=== PATIENT | male | born 1955 | race Caucasian/White ===

== ENCOUNTER → 2018-05-03 14:55 | Outpatient (CLI) | payer MEDICARE, SELFPAY ==
[2018-05-03 15:56] LABS: Add Manual Diff / Slide Review NO; Basophils Percent Auto 0.9 % (0-2); Eosinophils Percent Auto 6.1 % (2-4); Hematocrit 44.6 % (41-53); Hemoglobin 15.1 g/dL (13.5-17.5); Lymphocytes Percent Auto 24.1 % (25-40); Mean Corpuscular HGB Conc 33.8 % (30-36); Mean Corpuscular Hemoglobin 31.4 PG (26-34); Mean Corpuscular Volume 92.8 fL (80-100); Monocytes Percent Auto 5.3 % (3-14); Neutrophils Absolute Auto 3700 /uL (3000-5900); Neutrophils Percent Auto 63.6 % (50-75); Platelet Count 148 X10^3/uL (150-400); Red Cell Distribution Width 13.1 % (11.6-14.8); White Blood Cell Count 5.9 X10^3/uL (4.5-11.0)
[2018-05-03 16:18] LABS: Alanine Aminotransferase 39 IU/L (21-72); Albumin 4.3 g/dL (3.5-5.0); Albumin Globulin Ratio 1.7 (1.0-2.8); Alkaline Phosphatase 66 U/L (38-126); Aspartate Aminotransferase 21 IU/L (17-59); BUN Creatinine Ratio 24.2 (6-22); Bilirubin Total 0.5 mg/dL (0.2-1.3); Blood Urea Nitrogen 29 mg/dL (9-20); Calcium 9.6 mg/dL (8.4-10.2); Carbon Dioxide 23 mmol/L (22-32); Chloride 106 mmol/L (98-107); Cholesterol 200 mg/dL (140-199); Estimated Glomerular Filt Rate > 60.0 mL/min (>60); Globulin 2.5 g/dL (1.7-4.1); Glucose 87 mg/dL (80-110); HDL Cholesterol 61 mg/dL (40-60); HEMOLYSIS < 15 (0-50); LDL Cholesterol Calculated 130 mg/dL (<100); Potassium 4.8 mmol/L (3.4-5.1); Sodium 142 mmol/L (137-145); Total Protein 6.8 g/dL (6.3-8.2); Triglycerides 45 mg/dL (35-150)
[2018-05-03 16:48] LABS: Thyroid Stimulating Hormone 8.06 uIU/mL (0.47-4.68)
[2018-05-03 16:49] LABS: Prostate Specific Antigen Scrn 3.73 ng/mL (0.1-4.0)
== END ==
PROVIDERS: Family Provider Family Medicine; PCP Family Medicine; Visit Provider Family Medicine
DX: Z00.00 Encounter for general adult medical examination without abnormal findings (principal); Z12.5 Encounter for screening for malignant neoplasm of prostate; R00.0 Tachycardia, unspecified; R74.0 Nonspecific elevation of levels of transaminase and lactic acid dehydrogenase [LDH]; E03.9 Hypothyroidism, unspecified; G61.9 Inflammatory polyneuropathy, unspecified; N40.0 Benign prostatic hyperplasia without lower urinary tract symptoms; R97.20 Elevated prostate specific antigen [PSA]; I10 Essential (primary) hypertension
CPT/HCPCS: 36415; 80053; 80061; 84443; 85025; G0103

== ENCOUNTER → 2018-05-15 10:25 | Outpatient (CLI) | payer MEDICARE, SELFPAY ==
--- NOTE | 2018-05-15 | DI.RAD.S_ITS ---
PROCEDURE: XR HIP W PEL IF DONE RT 2V INDICATIONS: RT HIP PAIN TECHNIQUE: AP pelvis with lateral view(s) of the right hip(s). COMPARISON: None. FINDINGS: Bones: No fractures or dislocations. Pelvic ring appears intact. No suspicious bony lesions. Mild to moderate bilateral hip joint osteophytic changes are seen. No evidence of avascular necrosis. Soft tissues: The visualized bowel gas pattern is normal. No suspicious soft tissue calcifications. IMPRESSION: Mild to moderate bilateral hip joint osteophytes. No pelvic or hip fracture. No evidence of avascular necrosis. Dictated by: Phililp Barragan M.D. on 05/15/2018 at 11:41 Approved by: Phillip Barragan M.D. on 05/15/2018 at 11:42
== END ==
PROVIDERS: Family Provider Family Medicine; PCP Family Medicine; Visit Provider Family Medicine
DX: M25.551 Pain in right hip (principal); M25.752 Osteophyte, left hip; M25.751 Osteophyte, right hip
CPT/HCPCS: 73502

== ENCOUNTER → 2018-08-09 06:59 | Outpatient (CLI) | payer MEDICARE, SELFPAY ==
--- NOTE | 2018-08-09 | DI.MRI.S_ITS ---
PROCEDURE: MR HIP RT WO CON INDICATIONS: RIGHT GROIN PAIN TECHNIQUE: Noncontrast coronal T1 spin echo and STIR through the bony pelvis. Coronal and axial T2 fast spin echo with fat saturation, sagittal T1 spin echo, and oblique axial T2 fast spin echo with fat saturation through the hip. COMPARISON: [facility], CR, XR HIP W PEL IF DONE RT 2V, 05/15/2018, 10:32. FINDINGS: Image quality: Excellent. Bones and joints: Mild bilateral hip degeneration, with subchondral sclerosis and spurring. No intraosseous lesions or fractures. Degenerative marrow signal changes and spurring at the pubis symphysis. No avascular necrosis of the femoral heads. Mild diffuse lower lumbar spondylosis there is Tendons and ligaments: Mild thickening of the gluteus minimus tendon with adjacent soft tissue edema in keeping with low-grade tendinopathy The nearby proximal iliotibial band also appears intact. The iliopsoas tendon appears intact, without adjacent bursal fluid collections or evidence for impingement syndrome. Minimal thickening of the origin of the hamstring, which is technically indeterminate The straight and reflected heads of the rectus femoris muscle origin appear intact, as well as the conjoint tendon. The ligamentum teres appears intact where visualized. Labrum and cartilage: Irregularity and intrasubstance signal change which appears to traverse the full thickness of the base of the anterosuperior labrum, probably reflecting tear, which may be chronic/age-appropriate.There is mild adjacent subchondral loss. The alpha angle of the femur is within normal limits at less than 55 degrees. Soft tissues: Visualized muscles demonstrate normal bulk and internal signal. Quadratus femoris muscle demonstrates no internal edema to suggest ischiofemoral impingement. The proximal sciatic neurovascular bundle appears normal adjacent to the hamstring tendons. No free pelvic fluid. Bladder wall thickness is normal. Genitourinary structures and bowel loops appear normal where visualized. IMPRESSION: Poorly defined anterosuperior labral tear which could be chronic/degenerative. Mild right hip abductor insertional tendinopathy primarily involving the gluteus minimus tendon. Age indeterminate minimal hamstring origin tendinopathy. Mild bilateral hip joint degeneration. Dictated by: Luis Pope M.D. on 08/09/2018 at 10:04 Approved by: Luis Pope M.D. on 08/09/2018 at 10:13
== END ==
PROVIDERS: Family Provider Family Medicine; PCP Family Medicine; Visit Provider Family Medicine
DX: R10.9 Unspecified abdominal pain (principal); M16.0 Bilateral primary osteoarthritis of hip; S73.191A Other sprain of right hip, initial encounter; M67.853 Other specified disorders of tendon, right hip
CPT/HCPCS: 73721

== ENCOUNTER → 2018-10-05 13:00 | Outpatient (CLI) | payer MEDICARE, SELFPAY ==
[2018-10-05 15:07] LABS: TSH w/ Reflex to FT4 5.63 uIU/mL (0.47-4.68)
[2018-10-05 15:44] LABS: Free T4, Direct Thyroxine 1.19 ng/dL (0.78-2.19)
== END ==
PROVIDERS: PCP Family Medicine; Visit Provider Family Medicine
DX: E03.9 Hypothyroidism, unspecified (principal)
CPT/HCPCS: 36415; 84439; 84443

== ENCOUNTER → 2018-11-27 10:38 | Outpatient (CLI) | payer MEDICARE, SELFPAY ==
--- NOTE | 2018-11-27 10:42 | DI.CT.S_ITS ---
PROCEDURE: CT KIDNEY URETER BLADDER (KUB) INDICATIONS: Calculus of kidney. Groin pain TECHNIQUE: Noncontrast 5 mm thick sections acquired from the diaphragms to the symphysis. 5 mm thick coronal and sagittal reformats were then performed. For radiation dose reduction, the following was used: automated exposure control, adjustment of mA and/or kV according to patient size. COMPARISON: [facility], CT, IVP (ABD & PEL WWO CONTRAST), 07/12/2016, 10:20. [facility], CT, KIDNEY/ URETER/BLADDER, 09/19/2006, 12:59. FINDINGS: Image quality: Excellent. Lung bases: Lung bases are clear. Heart size is normal. Urinary system: No right-sided urolithiasis is identified. 2 mm left renal calculus on image 32 series 2 in the interpolar region. There is also 1 mm calculus present in the left kidney on image 29 series 2. No hydronephrosis. No perinephric stranding identified. The ureters are nondilated. The bladder is grossly unremarkable although partially decompressed. No bladder calculi.. Other solid organs: Liver is normal in size. Gallbladder negative. Pancreas is normal in contours. Spleen is normal in size. No adrenal nodules. Peritoneum and bowel: There is possible distal gastric wall thickening raising the possibility of gastritis although technically nonspecific and the stomach is decompressed which limits evaluation. No free fluid or air. Colonic diverticulosis is seen without evidence of acute complication. The appendix is within normal limits. Mild/moderate stool Nodes and vessels: No retroperitoneal or mesenteric adenopathy by size criteria. Aorta and inferior vena cava are normal in caliber. Abdominal wall: No ventral hernias. Pelvis: No free pelvic fluid. No inguinal hernias or adenopathy. Bones: No suspicious bony lesions. No vertebral body compression fractures. IMPRESSION: Sub-5 mm left nephrolithiasis. No evidence of urinary obstruction. Elsewhere, no acute process. Low diverticulosis. Dictated by: Luis Pope M.D. on 11/27/2018 at 16:34 Approved by: Luis Pope M.D. on 11/27/2018 at 16:41
== END ==
PROVIDERS: PCP Family Medicine; Visit Provider Specialist
DX: N20.0 Calculus of kidney (principal); R10.30 Lower abdominal pain, unspecified; K57.90 Diverticulosis of intestine, part unspecified, without perforation or abscess without bleeding
CPT/HCPCS: 74176

== ENCOUNTER → 2018-12-04 09:19 | Outpatient (CLI) | payer MEDICARE, SELFPAY ==
[2018-12-04 12:30] LABS: Prostate Specific Antigen Scrn 2.71 ng/mL (0.1-4.0)
== END ==
PROVIDERS: PCP Family Medicine; Visit Provider Specialist
DX: N40.1 Benign prostatic hyperplasia with lower urinary tract symptoms (principal)
CPT/HCPCS: 36415; 84153; G0103

== ENCOUNTER → 2018-12-12 08:58 | Outpatient (CLI) | payer MEDICARE, SELFPAY ==
--- NOTE | 2018-12-12 | DI.US.S_ITS ---
PROCEDURE: US SCROTUM INDICATIONS: SCROTAL PAIN/HERNIA TECHNIQUE: Real-time scanning was performed of the scrotum and testicles, with image documentation. Color and pulse Doppler interrogation was performed of both testicles. COMPARISON: None. FINDINGS: Right: Testicle is normal in size at 4.4 x 2.3 x 2.7 cm, and homogenous in echotexture. Epididymis is normal in overall size and morphology. No hydrocele or varicoceles. Overlying scrotal skin is normal in thickness. 5 mm focus of calcification at the posterior aspect of the right testis. Left: Testicle is normal in size at 4.0 x 1.9 x 2.3 cm, and homogeneous in echotexture. Epididymis is normal in overall size and morphology. No hydrocele or varicoceles. Overlying scrotal skin is normal in thickness. Doppler: Color and pulse Doppler demonstrate normal and symmetric arterial flow in both testicles. IMPRESSION: 1. No acute process. 2. Calcific focus at the posterior aspect of the right testicle, possibly related to prior hemorrhage, infection, or inflammation. Dictated by: Miller Mart M.D. on 12/12/2018 at 16:49 Approved by: Miller Mart M.D. on 12/12/2018 at 16:50
--- NOTE | 2018-12-12 | DI.US.S_ITS ---
PROCEDURE: US ABDOMEN LIMITED INDICATIONS: Suspect right inguinal hernia. TECHNIQUE: Real-time focused scanning was performed of the abdomen, with image documentation. COMPARISON: None. FINDINGS: Ultrasound was performed in the area of interest. No inguinal hernia is identified bilaterally. Mildly enlarged right inguinal lymph nodes are noted bilaterally measuring up to 1.3 cm on the right and improvement on the left. The lymph nodes demonstrate normal morphology with fatty sofia. IMPRESSION: 1. No inguinal hernias identified on ultrasound. 2. Bilateral borderline enlarged inguinal lymph nodes, most likely reactive. Recommend clinical correlation and followup. Dictated by: Jaci Kim M.D. on 12/12/2018 at 13:32 Approved by: Jaci Kim M.D. on 12/12/2018 at 13:35
== END ==
PROVIDERS: PCP Student in an Organized Health Care Education/Training Program; Visit Provider Specialist
DX: N50.82 Scrotal pain (principal); R59.0 Localized enlarged lymph nodes
CPT/HCPCS: 76705; 76870

== ENCOUNTER → 2021-05-15 08:42 | Outpatient (CLI) | payer MEDICARE, SELFPAY ==
[2021-05-15 10:42] LABS: Add Manual Diff / Slide Review NO; Basophils Absolute Auto 100 /uL (0-100); Basophils Percent Auto 0.9 % (0-2); Eosinophils Absolute Auto 300 /uL (0-450); Hematocrit 45.2 % (41-53); Hemoglobin 15.6 g/dL (13.5-17.5); Lymphocytes Absolute Auto 1200 /uL (1100-4500); Lymphocytes Percent Auto 21.8 % (25-40); Mean Corpuscular HGB Conc 34.4 % (30-36); Mean Corpuscular Hemoglobin 30.8 PG (26-34); Mean Corpuscular Volume 89.4 fL (80-100); Monocytes Absolute Auto 400 /uL (0-900); Monocytes Percent Auto 6.6 % (3-14); Neutrophils Absolute Auto 3600 /uL (1500-7000); Neutrophils Percent Auto 64.7 % (50-75); Platelet Count 169 X10^3/uL (150-400); Red Blood Cell Count 5.06 X10^6/uL (4.5-5.9); Red Cell Distribution Width 12.9 % (11.6-14.8); White Blood Cell Count 5.6 X10^3/uL (4.5-11.0)
[2021-05-15 11:45] LABS: Alanine Aminotransferase 24 IU/L (<50); Albumin 3.9 g/dL (3.5-5.0); Albumin Globulin Ratio 1.4 (1.0-2.8); Alkaline Phosphatase 77 U/L (38-126); Aspartate Aminotransferase 23 IU/L (17-59); Bilirubin Total 0.4 mg/dL (0.2-1.3); Blood Urea Nitrogen 14 mg/dL (9-20); Calcium 9.5 mg/dL (8.4-10.2); Carbon Dioxide 29 mmol/L (22-32); Chloride 105 mmol/L (98-107); Cholesterol 179 mg/dL (140-199); Estimated Glomerular Filt Rate > 60.0 mL/min (>60); Globulin 2.8 g/dL (1.7-4.1); Glucose 96 mg/dL (80-110); HDL Cholesterol 56 mg/dL (40-60); HEMOLYSIS < 15 (0-50); LDL Cholesterol Calculated 114 mg/dL (<100); Potassium 4.3 mmol/L (3.4-5.1); Sodium 138 mmol/L (137-145); Total Protein 6.7 g/dL (6.3-8.2); Triglycerides 46 mg/dL (35-150)
[2021-05-15 12:41] LABS: Free T4, Direct Thyroxine 0.69 ng/dL (0.78-2.19)
== END ==
PROVIDERS: PCP Student in an Organized Health Care Education/Training Program; Referring Provider Physician Assistant; Visit Provider Physician Assistant
DX: I10 Essential (primary) hypertension (principal); E03.9 Hypothyroidism, unspecified; E78.5 Hyperlipidemia, unspecified; N40.0 Benign prostatic hyperplasia without lower urinary tract symptoms
CPT/HCPCS: 36415; 80053; 80061; 84153; 84439; 84443; 85025

== ENCOUNTER → 2021-06-03 17:26 | Outpatient (CLI) | payer MEDICARE, SELFPAY | PROVIDERS: PCP Student in an Organized Health Care Education/Training Program; Referring Provider Physician Assistant; Visit Provider Physician Assistant | DX: R10.30 Lower abdominal pain, unspecified (principal) ==

== ENCOUNTER → 2021-06-10 06:59 | Outpatient (CLI) | payer MEDICARE, SELFPAY ==
--- NOTE | 2021-06-10 07:02 | DI.MRI.S_ITS ---
PROCEDURE: MR LUMBAR SPINE WO CON INDICATIONS: Radiculopathy, lumbar region TECHNIQUE: Noncontrast sagittal T1 spin echo and T2 fast echo, sagittal STIR, axial T1 and T2 fast spin echo through the lumbar spine. In cases with scoliosis, additional coronal T2 fast spin echo may be performed. COMPARISON: [facility], CR, ABDOMEN 1 VIEW, 09/19/2006, 13:06. FINDINGS: Image quality: Excellent. Alignment and Curvature: 5 lumbar type vertebral bodies are present by plain film. There is mild grade 1 retrolisthesis of T12 on L1, L1 on L2, L2 on L3, L3 on L4, and L5 on S1. Bone Marrow: Marrow is of normal overall signal. No acute vertebral body compression fractures. Moderate reactive signal within the endplates adjacent to the L5-S1 intervertebral disc. Mild reactive signal within the remaining lumbar and lower thoracic endplates. Spinal Cord: Conus medullaris terminates at the upper L2 level. Visualized cord demonstrates normal signal and size. Paraspinous Soft Tissues: No paravertebral masses. T12-L1: Moderate disc height loss and desiccation. Mild diffuse disc bulge. Mild bilateral facet and ligamentum flavum hypertrophy. Mild canal stenosis. No foraminal stenosis. L1-L2: Mild disc height loss. Moderate disc desiccation. Mild diffuse disc bulge. Mild facet and ligamentum flavum hypertrophy. Mild canal stenosis. Mild bilateral foraminal stenosis. L2-L3: Mild disc height loss and desiccation. Mild diffuse disc bulge. Mild facet and ligamentum flavum hypertrophy. Mild epidural lipomatosis. Mild canal stenosis. Mild bilateral foraminal stenosis. L3-L4: Moderate disc height loss and desiccation. Mild diffuse disc bulge. Mild facet and ligamentum flavum hypertrophy. Mild epidural lipomatosis. Mild canal stenosis. Mild to moderate bilateral foraminal stenosis. L4-L5: Mild disc height loss and desiccation. Mild diffuse disc bulge. Mild facet and ligamentum flavum hypertrophy. Mild epidural lipomatosis. Mild canal stenosis. Moderate to severe bilateral foraminal stenosis with mild L4 nerve root compression. L5-S1: Moderate disc height loss and desiccation. Mild diffuse disc bulge/osteophyte. Mild bilateral facet hypertrophy. Mild canal stenosis. Moderate to severe left and moderate right foraminal stenosis. Mild left L5 nerve root compression. IMPRESSION: 1. Multilevel degenerative disc and facet disease, as well as ligamentum flavum hypertrophy and epidural lipomatosis. 2. Mild multilevel canal stenoses. 3. Multilevel foraminal stenoses, worst at L4-L5 and L5-S1 where there is associated intraforaminal nerve root compression. Recommend correlation with clinical symptoms to ascertain relevance of these findings. Dictated by: Miller Mart M.D. on 06/10/2021 at 9:05 Approved by: Miller Mart M.D. on 06/10/2021 at 9:08
== END ==
PROVIDERS: PCP Physician Assistant; Referring Provider Physician Assistant; Visit Provider Physician Assistant
DX: M51.16 Intervertebral disc disorders with radiculopathy, lumbar region (principal); M51.17 Intervertebral disc disorders with radiculopathy, lumbosacral region; M48.061 Spinal stenosis, lumbar region without neurogenic claudication; M48.07 Spinal stenosis, lumbosacral region
CPT/HCPCS: 72148

== ENCOUNTER → 2021-06-11 08:53 | Outpatient (CLI) | payer MEDICARE, SELFPAY ==
--- NOTE | 2021-06-11 | DI.RAD.S_ITS ---
PROCEDURE: FL HIP INJECTION MR/CT RT INDICATIONS: Other sprain of right hip, initial encounter TECHNIQUE: The indications, alternatives, benefits, risks, and complications of the procedure were explained to the patient. Written informed consent was obtained and placed in the chart. The hip was examined fluoroscopically with the legs fixed in slight internal rotation, and a site for needle placement chosen for entry into the hip joint from an anterior approach. Care was taken to locate the common femoral artery and vein beforehand. The skin was prepped and draped in a sterile fashion, and 1% Lidocaine infiltrated from skin down to joint capsule. A spinal needle was inserted into the joint, and a small amount of iodinated contrast media injected to confirm intra-articular placement of the needle tip. This was followed by approximately 10 mL dilute solution of a gadolinium containing MR contrast agent. The needle was removed and a dressing was applied. The patient was given postprocedural instructions and sent to the MR suite for imaging. COMPARISON: [facility], , MR HIP RT W CON, 06/11/2021, 9:38. FINDINGS: A single fluoroscopic spot image demonstrates intra-articular location of injected iodinated contrast. IMPRESSION: Successful fluoroscopically guided administration of dilute Gadolinium solution into the hip joint for MR arthrogram. Dictated by: Miller Mart M.D. on 06/11/2021 at 10:08 Approved by: Miller Mart M.D. on 06/11/2021 at 10:09
--- NOTE | 2021-06-11 | DI.MRI.S_ITS ---
PROCEDURE: MR HIP RT W CON INDICATIONS: Other sprain of right hip, initial encounter TECHNIQUE: After the administration of 10 mL of dilute intra-articular Gadolinium contrast, coronal STIR of the bony pelvis; coronal and oblique axial T1 spin echo with fat saturation, axial T2 fast spin echo with fat saturation, sagittal T1 spin echo with and without fat saturation of the involved hip. COMPARISON: None. FINDINGS: Image quality: Excellent. Bones and joints: Symmetric appearing mild bilateral hip joint osteoarthritic changes are seen. No marrow edema. No intraosseous lesions or fractures. No avascular necrosis of the femoral head. The visualized lower lumbar spine appears normally aligned. The ligamental, neck, and labral plicae appear normal where visualized. Tendons and ligaments: There is tendinosis and low to moderate grade partial-thickness tear involving distal right gluteus medius and minimus tendons at their insertion on greater trochanter, without associated muscle atrophy. The nearby proximal iliotibial band also appears intact. The iliopsoas tendon appears intact, without adjacent bursal fluid collections or evidence for impingement syndrome. The origin of the hamstring tendon is intact at the ischial tuberosity, as well as the associated sacrotuberous ligament. The straight and reflected heads of the rectus femoris muscle origin appear intact, as well as the conjoint tendon. The ligamentum teres appears intact where visualized. Labrum and cartilage: Thinning of articulating cartilages of femoral head is seen. There is subtle fraying of superior right hip labrum with questionable contrast extension best seen on series 4, image 13 suggestive of focal superior labral tear. No paralabral cysts. The alpha angle of the femur is within normal limits at less than 55 degrees. Soft tissues: Visualized muscles demonstrate normal bulk and internal signal. Quadratus femoris muscle demonstrates no internal edema to suggest ischiofemoral impingement. The proximal sciatic neurovascular bundle appears normal adjacent to the hamstring tendons. No free pelvic fluid. Bladder wall thickness is normal. Genitourinary structures and bowel loops appear normal where visualized. IMPRESSION: 1. Mild symmetric appearing bilateral hip joint osteoarthritis. No marrow edema. No fracture or dislocation. No evidence of avascular necrosis of femoral head. 2. Finding is suggestive of subtle focal superior right hip labral tear. 3. Tendinosis and low to moderate grade partial-thickness tear involving distal right gluteus medius and minimus tendons at their insertions on greater trochanter. No other muscle or tendon signal abnormality is seen. Dictated by: Phillip Barragan M.D. on 06/11/2021 at 10:41 Approved by: Phillip Barragan M.D. on 06/11/2021 at 11:27
== END ==
PROVIDERS: PCP Physician Assistant; Referring Provider Physician Assistant; Visit Provider Physician Assistant
DX: R10.30 Lower abdominal pain, unspecified (principal); S73.191A Other sprain of right hip, initial encounter; M16.0 Bilateral primary osteoarthritis of hip; S76.011A Strain of muscle, fascia and tendon of right hip, initial encounter
CPT/HCPCS: 27093; 73722; 77002

== ENCOUNTER → 2021-06-24 13:22 | Outpatient (CLI) | payer MEDICARE, SELFPAY ==
[2021-06-24 15:59] LABS: TSH w/ Reflex to FT4 0.02 uIU/mL (0.47-4.68)
[2021-06-24 16:29] LABS: Free T4, Direct Thyroxine 2.13 ng/dL (0.78-2.19)
== END ==
PROVIDERS: PCP Physician Assistant; Referring Provider Physician Assistant; Visit Provider Physician Assistant
DX: E03.9 Hypothyroidism, unspecified (principal)
CPT/HCPCS: 36415; 84439; 84443

== ENCOUNTER → 2021-07-21 11:37 | Outpatient (CLI) | payer MEDICARE, SELFPAY ==
--- NOTE | 2021-07-21 11:42 | DI.CT.S_ITS ---
PROCEDURE: CT ABDOMEN PELVIS W CON INDICATIONS: Left lower quadrant pain, diverticulitis TECHNIQUE: After the administration of oral and IV contrast, axial sections were acquired from the lung bases to the pubic symphysis. Coronal and sagittal reformats were performed. For radiation dose reduction, the following was used: automated exposure control, adjustment of mA and/or kV according to patient size. COMPARISON: None. FINDINGS: Image quality: Excellent. Lung bases: Lungs are clear. Mild circumferential distal esophageal wall thickening. Heart: No significant findings. ABDOMEN: Liver: No masses Gallbladder: Normal wall thickness. Biliary ducts: Nondilated. Pancreas: Normal. Spleen: Normal size. Adrenal Glands: No nodules. Kidneys and Ureters: Normal enhancement. Nonobstructing three and 4 mm left sided kidney stones. No hydronephrosis or hydroureter. Stomach and Bowel: Moderate inflammatory changes at the distal descending and proximal sigmoid colon, an area of several inflamed diverticula. There is no extraluminal gas or fluid collection. There is fascial thickening but no free fluid in the pelvis. The remainder of the stomach and bowel appears normal. Peritoneum: No abnormal intraperitoneal fluid. No free air. Ventral Wall: No hernia. Abdominal Nodes: No retroperitoneal or mesenteric adenopathy by size criteria. Vessels: Aorta and inferior vena cava are normal in size. PELVIS: Pelvic Organs: Prostate gland is mildly enlarged. Bladder: Unremarkable. Pelvic Nodes: No enlarged lymph nodes. Miscellaneous: No inguinal hernias are seen. Bones: Unremarkable. IMPRESSION: 1. Acute inflammation in the left lower quadrant surrounding of focal area of distal descending and proximal sigmoid colon containing diverticula. While this is most likely acute diverticulitis, given focality, colonoscopy to exclude tumor is recommended after resolution of the acute disease. 2. Nonobstructing left intrarenal stones measuring three and 4 mm. 3. Distal esophageal wall thickening suggesting reflux esophagitis. Correlate clinically. Dictated by: Tosin Wilson M.D. on 07/21/2021 at 14:06 Approved by: Tosin Wilson M.D. on 07/21/2021 at 14:11
[2021-07-21 11:59] LABS: Add Manual Diff / Slide Review NO; Basophils Absolute Auto 0 /uL (0-100); Basophils Percent Auto 0.3 % (0-2); Eosinophils Absolute Auto 100 /uL (0-450); Eosinophils Percent Auto 0.5 % (2-4); Hematocrit 45.3 % (41-53); Hemoglobin 15.1 g/dL (13.5-17.5); Lymphocytes Absolute Auto 800 /uL (1100-4500); Lymphocytes Percent Auto 7.3 % (25-40); Mean Corpuscular HGB Conc 33.4 % (30-36); Mean Corpuscular Hemoglobin 30.2 PG (26-34); Mean Corpuscular Volume 90.3 fL (80-100); Monocytes Absolute Auto 900 /uL (0-900); Monocytes Percent Auto 7.5 % (3-14); Neutrophils Absolute Auto 9700 /uL (1500-7000); Neutrophils Percent Auto 84.4 % (50-75); Platelet Count 202 X10^3/uL (150-400); Red Blood Cell Count 5.02 X10^6/uL (4.5-5.9); Red Cell Distribution Width 12.8 % (11.6-14.8); White Blood Cell Count 11.5 X10^3/uL (4.5-11.0)
[2021-07-21 12:19] LABS: Alanine Aminotransferase 157 IU/L (<50); Albumin 4.3 g/dL (3.5-5.0); Albumin Globulin Ratio 1.2 (1.0-2.8); Alkaline Phosphatase 115 U/L (38-126); Aspartate Aminotransferase 105 IU/L (17-59); BUN Creatinine Ratio 16.8 (6-22); Bilirubin Total 0.8 mg/dL (0.2-1.3); Blood Urea Nitrogen 16 mg/dL (9-20); Calcium 9.5 mg/dL (8.4-10.2); Carbon Dioxide 29 mmol/L (22-32); Chloride 104 mmol/L (98-107); Estimated Glomerular Filt Rate > 60.0 mL/min (>60); Globulin 3.5 g/dL (1.7-4.1); Glucose 110 mg/dL (80-110); HEMOLYSIS < 15 (0-50); Potassium 4.6 mmol/L (3.4-5.1); Sodium 136 mmol/L (137-145); Total Protein 7.8 g/dL (6.3-8.2)
== END ==
PROVIDERS: PCP Physician Assistant; Referring Provider Physician Assistant; Visit Provider Physician Assistant
DX: R10.32 Left lower quadrant pain (principal); N20.0 Calculus of kidney
CPT/HCPCS: 36415; 74177; 80053; 85025; Q9967

== ENCOUNTER → 2021-07-23 09:24 | Outpatient (CLI) | payer MEDICARE, SELFPAY ==
[2021-07-23 10:41] LABS: Alanine Aminotransferase 146 IU/L (<50); Albumin 4.2 g/dL (3.5-5.0); Albumin Globulin Ratio 1.1 (1.0-2.8); Alkaline Phosphatase 140 U/L (38-126); Aspartate Aminotransferase 63 IU/L (17-59); BUN Creatinine Ratio 20.8 (6-22); Bilirubin Total 0.7 mg/dL (0.2-1.3); Blood Urea Nitrogen 20 mg/dL (9-20); Calcium 10.4 mg/dL (8.4-10.2); Carbon Dioxide 34 mmol/L (22-32); Chloride 102 mmol/L (98-107); Estimated Glomerular Filt Rate > 60.0 mL/min (>60); Globulin 3.7 g/dL (1.7-4.1); Glucose 106 mg/dL (80-110); HEMOLYSIS < 15 (0-50); Potassium 5.1 mmol/L (3.4-5.1); Sodium 138 mmol/L (137-145); Total Protein 7.9 g/dL (6.3-8.2)
[2021-07-23 11:07] LABS: TSH w/ Reflex to FT4 < 0.02 uIU/mL (0.47-4.68)
== END ==
PROVIDERS: PCP Physician Assistant; Referring Provider Physician Assistant; Visit Provider Physician Assistant
DX: E03.9 Hypothyroidism, unspecified (principal); R94.5 Abnormal results of liver function studies
CPT/HCPCS: 36415; 80053; 84443

== ENCOUNTER → 2021-07-28 09:27 | Outpatient (CLI) | payer MEDICARE, SELFPAY ==
[2021-07-28 11:49] LABS: Alanine Aminotransferase 56 IU/L (<50); Albumin 3.9 g/dL (3.5-5.0); Albumin Globulin Ratio 1.3 (1.0-2.8); Alkaline Phosphatase 105 U/L (38-126); Aspartate Aminotransferase 28 IU/L (17-59); BUN Creatinine Ratio 22.9 (6-22); Bilirubin Total 0.3 mg/dL (0.2-1.3); Blood Urea Nitrogen 22 mg/dL (9-20); Calcium 9.5 mg/dL (8.4-10.2); Carbon Dioxide 28 mmol/L (22-32); Chloride 106 mmol/L (98-107); Estimated Glomerular Filt Rate > 60.0 mL/min (>60); Glucose 94 mg/dL (80-110); HEMOLYSIS < 15 (0-50); Potassium 5.2 mmol/L (3.4-5.1); Sodium 136 mmol/L (137-145); Total Protein 6.9 g/dL (6.3-8.2)
== END ==
PROVIDERS: PCP Physician Assistant; Referring Provider Physician Assistant; Visit Provider Physician Assistant
DX: R94.5 Abnormal results of liver function studies (principal)
CPT/HCPCS: 36415; 80053

== ENCOUNTER → 2021-12-14 09:36 | Outpatient (CLI) | payer MEDICARE, SELFPAY ==
[2021-12-14 11:16] LABS: Appearance Urine UA CLEAR; Bilirubin Urine UA NEGATIVE (NEGATIVE); Color Urine UA YELLOW; Glucose Urine UA NEGATIVE (Negative); Ketones Urine UA NEGATIVE (NEGATIVE); Leukocyte Esterase Urine UA NEGATIVE (NEGATIVE); Nitrite Urine UA NEGATIVE (Negative); Occult Blood Urine UA NEGATIVE (Negative); Protein Urine UA NEGATIVE (Negative); Specific Gravity Urine UA 1.025 (1.000-1.035); Urobilinogen Urine UA 0.2 E.U./dL (0.2)
[2021-12-14 11:35] LABS: Bacteria Urine None Seen; Culture Indicated Urine Cult Not Indicated; Hyaline Casts Urine 1-5/LPF; RBC Urine 0-1/HPF (0-5/HPF); Squamous Epithelial Cell Urine None Seen (0-5/HPF); WBC Urine 0-1/HPF (0-5/HPF)
[2021-12-14 11:51] LABS: Alanine Aminotransferase 25 IU/L (<50); Albumin 4.1 g/dL (3.5-5.0); Albumin Globulin Ratio 1.4 (1.0-2.8); Alkaline Phosphatase 79 U/L (38-126); Aspartate Aminotransferase 27 IU/L (17-59); BUN Creatinine Ratio 19.6 (6-22); Bilirubin Total 0.3 mg/dL (0.2-1.3); Blood Urea Nitrogen 18 mg/dL (9-20); Calcium 9.4 mg/dL (8.4-10.2); Carbon Dioxide 25 mmol/L (22-32); Chloride 109 mmol/L (98-107); Cholesterol 187 mg/dL (140-199); Estimated Glomerular Filt Rate > 60 mL/min (>60); Globulin 2.9 g/dL (1.7-4.1); Glucose 94 mg/dL (80-110); HDL Cholesterol 47 mg/dL (40-60); HEMOLYSIS < 15 (0-50); LDL Cholesterol Calculated 130 mg/dL (<100); Potassium 4.4 mmol/L (3.4-5.1); Sodium 138 mmol/L (137-145); Triglycerides 48 mg/dL (35-150)
[2021-12-14 12:05] LABS: Vitamin D 25 Hydroxy (D3) 57.7 ng/mL (30.0-100.0)
[2021-12-14 12:24] LABS: Creatinine Urine Random 141.1 mg/dL
[2021-12-14 12:44] LABS: Free T4, Direct Thyroxine 0.94 ng/dL (0.78-2.19)
[2021-12-15 06:01] LABS: PSA Free % 11.1 % (.); PSA, Total 14.4 ng/mL (0.0-4.0)
== END ==
PROVIDERS: PCP Physician Assistant
DX: E03.9 Hypothyroidism, unspecified (principal); I10 Essential (primary) hypertension; R74.8 Abnormal levels of other serum enzymes; N40.0 Benign prostatic hyperplasia without lower urinary tract symptoms; Z13.21 Encounter for screening for nutritional disorder; E78.5 Hyperlipidemia, unspecified
CPT/HCPCS: 36415; 80053; 80061; 81001; 82043; 82306; 82570; 84153; 84154; 84439; 84443

== ENCOUNTER → 2021-12-30 11:18 | Outpatient (CLI) | payer MEDICARE, SELFPAY ==
[2021-12-30 12:33] LABS: COVID19 -Nasal RAPID Negative (Negative)
== END ==
PROVIDERS: PCP Physician Assistant; Visit Provider Surgery
DX: Z20.822 Contact with and (suspected) exposure to COVID-19 (principal); Z01.812 Encounter for preprocedural laboratory examination
CPT/HCPCS: 87635; C9803

== ENCOUNTER 2021-12-31 12:27 | Day surgery (SDC) | payer MEDICARE, SELFPAY ==
[2021-12-31 12:57] VITALS: BMI 29.3
[2021-12-31 13:04] VITALS: BP 115/83; PULSE 70; RESP 18; TEMP 36.2; O2SAT 98
[2021-12-31] MEDS: LACTATED RINGERS 1,000 ML 100 ML IV (13:17)
--- NOTE | 2021-12-31 14:13 | PM.HP.1 ---
History of Present Illness History of Present Illness Date Patient Seen: 12/31/21 Time Patient Seen: 14:13 Chief complaint: SCREENING COLONOSCOPY Narrative: Mustapha is here for a colonoscopy. He believes his last one was about [address] Colon. His dad had colon cancer in his late 60s. His hernia has not been bothering him and he does not feel like needs to have addressed at this time Patient History Medical History (Updated 12/31/21 @ 14:14 by Jesús Houston MD) HTN (hypertension) Hypothyroid Migraine Surgical History H/O knee surgery Family & Social History Family History Father Heart disease Mother Stroke Social History: household members none lives independently Yes Tobacco & Substance use: Smoking Status Never smoker alcohol intake never Substance Use Type does not use Meds Home Medications and Allergies Home Medications Medication Instructions Recorded Confirmed Type atenolol 25 mg tablet 25 mg PO QDAY ##0 05/03/16 12/31/21 History celecoxib 200 mg capsule (Celebrex) 200 mg PO DAILY 07/01/21 12/31/21 History hydrocodone 7.5 mg-acetaminophen 1 tab PO DAILY 07/01/21 12/31/21 History 325 mg tablet levothyroxine 25 mcg capsule 200 mcg PO DAILY 07/01/21 12/31/21 History lisinopril 20 mg tablet 20 mg PO DAILY 07/01/21 12/31/21 History sumatriptan succinate 100 mg 100 mg PO ONCE 07/01/21 12/31/21 History tablet (Imitrex) tamsulosin 0.4 mg capsule 0.4 mg PO DAILY 07/01/21 12/31/21 History dutasteride 0.5 mg DAILY 12/31/21 12/31/21 History zolpidem 10 mg tablet 10 mg 3XD 12/31/21 12/31/21 History Allergies Allergy/AdvReac Type Severity Reaction Status Date / Time No Known Drug Allergies Allergy Verified 12/31/21 12:49 Exam Vital Signs (past 8 hours): - 12/31/21 13:04 Temperature 97.1 F L Pulse Rate 70 Respiratory Rate 18 Blood Pressure 115/83 Pulse Oximetry 98 Oxygen Delivery Method Room Air Oxygen Delivery Method Room Air Const General: healthy appearing Resp Effort & Inspection: normal respiratory effort Assessment & Plan Assessment and plan (1) Colon cancer screening: Status: Acute Plan 66-year-old man with a family history of colon cancer who is here for a colonoscopy. We reviewed the risks and benefits and he would like to proceed. Time Spent With Patient Critical Care time: I spent a total of [] minutes of critical care time on this patient's care today; this time is exclusive of procedural time.
[2021-12-31] MEDS: fentaNYL 250 MCG/5 ML INJ 175 MCG IV (14:16)
[2021-12-31] MEDS: MIDAZOLAM 5 MG/5 ML VIAL 7 MG IV (14:16)
--- NOTE | 2021-12-31 14:46 | PM.OP.COLON ---
Operative Date/Time/Diagnoses Date of procedure: 12/31/21 Time of procedure: 14:46 Pre-op diagnosis: Colon cancer screening and family history of colon cancer Post-op diagnosis: same Procedure & Clinicians Study performed: Colonoscopy Same procedure as scheduled: Yes Surgeon: Jesús Houston Procedure Notes Procedure in detail: Surgeon: Jesús Houston MD Procedure: The patient was brought to the endoscopy suite, placed in left lateral decubitus position. The patient was connected to monitoring devices. A time-out was performed. Sedation was administered. Once the patient was adequately sedated, a digital rectal exam was performed and was normal. The scope was then inserted and advanced to the cecum where the appendiceal orifice was identified and photographed. The scope was then slowly withdrawn over greater than 6 minutes. The mucosa was thoroughly inspected. There was a thick coating of bilious slime throughout most of the colon. This slime layer could not be easily irrigated away. No obvious polyps were noted. There were a few scattered diverticula. The scope was retroflexed in the rectum. No abnormalities were noted. The scope was straightened and removed. The patient was awakened and brought to recovery. Versed: 7 mg Fentanyl: 175 mcg EBL: 0 Findings: Normal colon with a suboptimal prep Scope withdrawal time: 9 Sedation minutes: 28 Post-procedure Plan for aftercare: Because the prep was suboptimal next colonoscopy should be in 1 year Disposition: PACU
[2021-12-31 14:50] VITALS: BP 112/85; PULSE 85; RESP 15; TEMP 36.4; O2SAT 97
[2021-12-31 14:55] VITALS: BP 131/79; PULSE 93; RESP 18; O2SAT 96
[2021-12-31 15:00] VITALS: BP 114/85; PULSE 88; RESP 16; O2SAT 100
[2021-12-31 15:10] VITALS: BP 114/79; PULSE 86; RESP 16; O2SAT 100
== END 2021-12-31 15:20 | disposition home or self-care (01) ==
PROVIDERS: PCP Family Medicine; Referring Provider Surgery; Visit Provider Surgery
PROC: 0DJD8ZZ Inspection of Lower Intestinal Tract, Via Natural or Artificial Opening Endoscopic (ICD-10-PCS; CPT 45378; principal; 2021-12-31 14:00)
DX: Z12.11 Encounter for screening for malignant neoplasm of colon (principal); Z80.0 Family history of malignant neoplasm of digestive organs; K57.30 Diverticulosis of large intestine without perforation or abscess without bleeding
CPT/HCPCS: G0105; 99152; 99153; J2250; J3010

== ENCOUNTER → 2022-01-28 12:46 | Outpatient (CLI) | payer MEDICARE, SELFPAY ==
[2022-01-28 15:10] LABS: Free T4, Direct Thyroxine 2.43 ng/dL (0.78-2.19); T7 (Free Thyroxine Index) 6.24 (1.65-3.89)
[2022-01-28 15:39] LABS: Thyroid Stimulating Hormone < 0.015 uIU/mL (0.47-4.68)
== END ==
PROVIDERS: PCP Family Medicine; Referring Provider Family Medicine; Visit Provider Family Medicine
DX: E03.9 Hypothyroidism, unspecified (principal)
CPT/HCPCS: 36415; 84436; 84439; 84443; 84479

== ENCOUNTER → 2022-02-03 09:23 | Outpatient (CLI) | payer MEDICARE, SELFPAY ==
[2022-02-04 05:30] LABS: PSA Free % 14.8 % (.)
== END ==
PROVIDERS: PCP Family Medicine; Referring Provider Family Medicine; Visit Provider Family Medicine
DX: R97.20 Elevated prostate specific antigen [PSA] (principal)
CPT/HCPCS: 36415; 84153; 84154

== ENCOUNTER → 2022-03-16 14:37 | Outpatient (CLI) | payer MEDICARE, SELFPAY ==
[2022-03-16 17:07] LABS: Free T4, Direct Thyroxine 3.02 ng/dL (0.78-2.19)
[2022-03-16 17:20] LABS: Prostate Specific Antigen 4.72 ng/mL (0.10-4.00)
[2022-03-16 17:29] LABS: Thyroid Stimulating Hormone < 0.015 uIU/mL (0.47-4.68)
[2022-03-17 07:47] LABS: Triiodothyronine T3 Total 168 ng/dL (71-180)
== END ==
PROVIDERS: PCP Family Medicine; Referring Provider Family Medicine; Visit Provider Family Medicine
DX: R97.20 Elevated prostate specific antigen [PSA] (principal); E03.9 Hypothyroidism, unspecified
CPT/HCPCS: 36415; 84153; 84439; 84443; 84480

== ENCOUNTER → 2022-04-27 10:21 | Outpatient (CLI) | payer MEDICARE, SELFPAY ==
[2022-04-27 11:41] LABS: TSH w/ Reflex to FT4 0.06 uIU/mL (0.47-4.68)
[2022-04-27 15:07] LABS: Free T4, Direct Thyroxine 1.14 ng/dL (0.78-2.19)
== END ==
PROVIDERS: PCP Family Medicine; Referring Provider Family Medicine; Visit Provider Family Medicine
DX: E03.9 Hypothyroidism, unspecified (principal); N40.1 Benign prostatic hyperplasia with lower urinary tract symptoms; N13.8 Other obstructive and reflux uropathy; R97.20 Elevated prostate specific antigen [PSA]; N20.0 Calculus of kidney; Z87.442 Personal history of urinary calculi
CPT/HCPCS: 36415; 51798; 81002; 84439; 84443; 99214

== ENCOUNTER → 2022-06-03 10:54 | Outpatient (CLI) | payer MEDICARE, SELFPAY ==
[2022-06-03 12:56] LABS: Alanine Aminotransferase 29 IU/L (<50); Albumin 4.5 g/dL (3.5-5.0); Albumin Globulin Ratio 1.3 (1.0-2.8); Alkaline Phosphatase 99 U/L (38-126); Aspartate Aminotransferase 27 IU/L (17-59); BUN Creatinine Ratio 18.7 (6-22); Bilirubin Total 0.8 mg/dL (0.2-1.3); Blood Urea Nitrogen 20 mg/dL (9-20); Calcium 9.6 mg/dL (8.4-10.2); Carbon Dioxide 22 mmol/L (22-32); Chloride 102 mmol/L (98-107); Cholesterol 243 mg/dL (140-199); Estimated Glomerular Filt Rate > 60 mL/min (>60); Globulin 3.6 g/dL (1.7-4.1); Glucose 87 mg/dL (80-110); HDL Cholesterol 59 mg/dL (40-60); HEMOLYSIS < 15 (0-50); LDL Cholesterol Calculated 173 mg/dL (<100); Potassium 4.4 mmol/L (3.4-5.1); Sodium 137 mmol/L (137-145); Total Protein 8.1 g/dL (6.3-8.2); Triglycerides 56 mg/dL (35-150)
[2022-06-03 13:27] LABS: TSH w/ Reflex to FT4 6.88 uIU/mL (0.47-4.68)
[2022-06-03 13:59] LABS: Free T4, Direct Thyroxine 0.96 ng/dL (0.78-2.19)
[2022-06-03 15:05] LABS: Creatinine Urine Random 220.4 mg/dL
[2022-06-03 15:09] LABS: Microalbumin Urine Random 0.9 mg/dL (0-1.6)
[2022-06-03 15:41] LABS: Follicle Stimulating Hormone 8.14 mIU/mL; Luteinizing Hormone 3.68 mIU/mL
[2022-06-08 12:13] LABS: Testosterone % Fr + Wkly bound 20.6 % (9.0-46.0); Testosterone Fr+Wkly bound 78.4 ng/dL (40.0-250.0); Testosterone, Total 380.7 ng/dL (264.0-916.0)
== END ==
PROVIDERS: PCP Family Medicine; Referring Provider Family Medicine; Visit Provider Family Medicine
DX: E03.9 Hypothyroidism, unspecified (principal); E78.5 Hyperlipidemia, unspecified; I10 Essential (primary) hypertension; R53.83 Other fatigue; R68.82 Decreased libido
CPT/HCPCS: 36415; 80053; 80061; 82043; 82570; 83001; 83002; 84403; 84439; 84443

== ENCOUNTER → 2022-06-17 13:30 | Outpatient (CLI) | payer MEDICARE, SELFPAY ==
[2022-06-22 07:37] LABS: PSA Free % 14.9 % (.); PSA, Total 6.3 ng/mL (0.0-4.0)
== END ==
PROVIDERS: PCP Family Medicine; Referring Provider Specialist; Visit Provider Specialist
DX: R97.20 Elevated prostate specific antigen [PSA] (principal)
CPT/HCPCS: 36415; 84153; 84154

== ENCOUNTER → 2022-10-01 10:12 | Outpatient (CLI) | payer MEDICARE, SELFPAY ==
[2022-10-01 12:05] LABS: Thyroid Stimulating Hormone 4.45 uIU/mL (0.47-4.68)
[2022-10-01 12:22] LABS: Hep C Virus Ab w/Reflex Quant NEGATIVE s/c (NEGATIVE)
[2022-10-01 13:28] LABS: Alanine Aminotransferase 35 IU/L (<50); Albumin 4.3 g/dL (3.5-5.0); Albumin Globulin Ratio 1.2 (1.0-2.8); Alkaline Phosphatase 102 U/L (38-126); Aspartate Aminotransferase 30 IU/L (17-59); BUN Creatinine Ratio 13.7 (6-22); Bilirubin Total 0.7 mg/dL (0.2-1.3); Blood Urea Nitrogen 16 mg/dL (9-20); Calcium 9.6 mg/dL (8.4-10.2); Carbon Dioxide 27 mmol/L (22-32); Chloride 101 mmol/L (98-107); Cholesterol 148 mg/dL (140-199); Estimated Glomerular Filt Rate > 60 mL/min (>60); Globulin 3.5 g/dL (1.7-4.1); Glucose 87 mg/dL (80-110); HDL Cholesterol 46 mg/dL (40-60); HEMOLYSIS < 15 (0-50); LDL Cholesterol Calculated 92 mg/dL (<100); Potassium 3.9 mmol/L (3.4-5.1); Sodium 138 mmol/L (137-145); Total Protein 7.8 g/dL (6.3-8.2); Triglycerides 49 mg/dL (35-150)
== END ==
PROVIDERS: PCP Nurse Practitioner Family; Referring Provider Nurse Practitioner Family; Visit Provider Nurse Practitioner Family
DX: E78.5 Hyperlipidemia, unspecified (principal); E03.9 Hypothyroidism, unspecified; Z11.59 Encounter for screening for other viral diseases
CPT/HCPCS: 36415; 80053; 80061; 84443; 86803

== ENCOUNTER → 2022-10-21 11:02 | Outpatient (CLI) | payer MEDICARE, SELFPAY ==
--- NOTE | 2022-10-21 11:03 | DI.MRI.S_ITS ---
PROCEDURE: MR PELIS WO/W CON INDICATIONS: kidney stones TECHNIQUE: Coronal HASTE, axial T1 FSE with fat saturation, 3-plane nonbreath-hold T2 FSE. After the administration of contrast, dynamic axial, delayed axial and coronal VIBE or 2-D FLASH with fat saturation through the pelvis. Optional diffusion weighted imaging and ADC may be performed. COMPARISON: None. FINDINGS: Image quality: Diffusion weighted and dynamic contrast enhanced images are diagnostic. Prostate: Gland size is mildly enlarged measuring 4.8 x 3.9 x 5.1 cm; ellipsoid gland volume is 50 mL. There is preservation the peripheral zone and mild median lobe hypertrophy. Lesion size(s): Lesion 1: 0.9 cm in oblique transverse position measured in the axial plane. Lesion location(s) (sector): Lesion 1: Left anterior transition zone/median lobe at the base of the prostate. Lesion description: Lesion 1: Linear/wedge-shaped focus of restricted diffusion poor definition T2 imaging. There is no bulging of the capsular pseudo capsule. T2 weighted imaging (T2WI) morphology score: Lesion 1: Three Diffusion weighted imaging (DWI) morphology score: Lesion 1: Four Dynamic contrast enhancement (DCE): Lesion 1: Absent Lesion PI-RADS score: Lesion 1: PI-RADS three Genitourinary system: The urinary bladder is partially decompressed. Given this, the wall thickness is normal. Distal ureters are non distended. Bowel and peritoneum: No pathologic free pelvic fluid. Inferior colon and small bowel loops are normal in caliber. There is extensive sigmoid diverticulosis. Nodes and vessels: No pelvic or inguinal adenopathy by size criteria. Iliac vessels are normal in caliber. Soft tissues: No inguinal hernias. Bones: Marrow demonstrates normal overall signal, without lesions to suggest metastases. IMPRESSION: 1. There is a single PI-RADS three lesion in a mildly enlarged prostate gland. 2. No suspicious pelvic adenopathy. Dictated by: Tosin Wilson M.D. on 10/22/2022 at 22:56 Approved by: Tosin Wilson M.D. on 10/22/2022 at 23:17
== END ==
PROVIDERS: PCP Nurse Practitioner Family; Referring Provider Specialist; Visit Provider Specialist
DX: N20.0 Calculus of kidney (principal)
CPT/HCPCS: 72197; A9579

== ENCOUNTER → 2022-12-23 15:18 | Outpatient (CLI) | payer MEDICARE, SELFPAY ==
[2022-12-23 16:40] LABS: Thyroid Stimulating Hormone 45.2 uIU/mL (0.47-4.68)
[2022-12-23 19:24] LABS: Alanine Aminotransferase 35 IU/L (<50); Albumin Globulin Ratio 1.4 (1.0-2.8); Alkaline Phosphatase 103 U/L (38-126); Aspartate Aminotransferase 27 IU/L (17-59); BUN Creatinine Ratio 14.2 (6-22); Bilirubin Total 0.5 mg/dL (0.2-1.3); Blood Urea Nitrogen 16 mg/dL (9-20); Calcium 9.6 mg/dL (8.4-10.2); Carbon Dioxide 27 mmol/L (22-32); Chloride 102 mmol/L (98-107); Cholesterol 206 mg/dL (140-199); Estimated Glomerular Filt Rate > 60 mL/min (>60); Globulin 2.8 g/dL (1.7-4.1); Glucose 86 mg/dL (80-110); HDL Cholesterol 52 mg/dL (40-60); HEMOLYSIS < 15 (0-50); LDL Cholesterol Calculated 133 mg/dL (<100); Potassium 4.2 mmol/L (3.4-5.1); Sodium 137 mmol/L (137-145); Total Protein 6.8 g/dL (6.3-8.2); Triglycerides 107 mg/dL (35-150)
[2022-12-24 08:06] LABS: HCV AB Non Reactive (Non Reactive)
== END ==
PROVIDERS: PCP Nurse Practitioner Family; Referring Provider Nurse Practitioner Family; Visit Provider Nurse Practitioner Family
DX: E78.5 Hyperlipidemia, unspecified (principal); Z11.59 Encounter for screening for other viral diseases; E03.9 Hypothyroidism, unspecified
CPT/HCPCS: 36415; 80053; 80061; 84443; 86803

== ENCOUNTER → 2023-04-04 16:27 | Outpatient (CLI) | payer MEDICARE, SELFPAY ==
[2023-04-04 17:22] LABS: Alanine Aminotransferase 27 IU/L (<50); Albumin 4.1 g/dL (3.5-5.0); Albumin Globulin Ratio 1.2 (1.0-2.8); Alkaline Phosphatase 78 U/L (38-126); Aspartate Aminotransferase 26 IU/L (17-59); BUN Creatinine Ratio 25.5 (6-22); Bilirubin Total 0.4 mg/dL (0.2-1.3); Blood Urea Nitrogen 26 mg/dL (9-20); Calcium 9.9 mg/dL (8.4-10.2); Carbon Dioxide 28 mmol/L (22-32); Chloride 99 mmol/L (98-107); Estimated Glomerular Filt Rate > 60 mL/min (>60); Globulin 3.5 g/dL (1.7-4.1); Glucose 67 mg/dL (80-110); HEMOLYSIS 15 (0-50); Potassium 4.4 mmol/L (3.4-5.1); Sodium 135 mmol/L (137-145); Total Protein 7.6 g/dL (6.3-8.2)
[2023-04-04 17:54] LABS: TSH w/ Reflex to FT4 6.24 uIU/mL (0.47-4.68)
[2023-04-04 18:35] LABS: Free T4, Direct Thyroxine 1.23 ng/dL (0.78-2.19)
[2023-04-06 06:08] LABS: Cholesterol HDL Ratio 3.7 ratio (0.0-5.0); Cholesterol,Total 200 mg/dL (100-199); HDL Cholesterol 54 mg/dL (>39); LDL Cholesterol Cal 127 mg/dL (0-99); Triglycerides 106 mg/dL (0-149); VLDL Cholesterol Cal 19 mg/dL (5-40)
== END ==
PROVIDERS: PCP Nurse Practitioner Family; Referring Provider Nurse Practitioner Family; Visit Provider Nurse Practitioner Family
DX: E78.5 Hyperlipidemia, unspecified (principal); E03.9 Hypothyroidism, unspecified
CPT/HCPCS: 36415; 80053; 80061; 84439; 84443

== ENCOUNTER → 2023-04-18 10:52 | Outpatient (CLI) | payer MEDICARE, SELFPAY ==
[2023-04-20 13:15] LABS: PSA Free % 17.2 % (.)
== END ==
PROVIDERS: PCP Nurse Practitioner Family; Referring Provider Specialist; Visit Provider Specialist
DX: R97.20 Elevated prostate specific antigen [PSA] (principal)
CPT/HCPCS: 36415; 84153; 84154

== ENCOUNTER → 2023-08-12 14:12 | Outpatient (CLI) | payer MEDICARE, SELFPAY ==
[2023-08-12 16:17] LABS: TSH w/ Reflex to FT4 5.44 uIU/mL (0.47-4.68)
[2023-08-15 14:36] LABS: Cholesterol HDL Ratio 2.2 ratio (0.0-5.0); Cholesterol,Total 124 mg/dL (100-199); HDL Cholesterol 56 mg/dL (>39); LDL Cholesterol Cal 52 mg/dL (0-99); Triglycerides 78 mg/dL (0-149); VLDL Cholesterol Cal 16 mg/dL (5-40)
== END ==
PROVIDERS: PCP Nurse Practitioner Family; Referring Provider Nurse Practitioner Family; Visit Provider Nurse Practitioner Family
DX: E03.9 Hypothyroidism, unspecified (principal); E78.5 Hyperlipidemia, unspecified
CPT/HCPCS: 36415; 80061; 84439; 84443

== ENCOUNTER → 2023-08-18 10:00 | Outpatient (CLI) | payer MEDICARE, SELFPAY ==
--- NOTE | 2023-08-18 | DI.RAD.S_ITS ---
PROCEDURE: XR CHEST 2V INDICATIONS: cough TECHNIQUE: 2 views of the chest were acquired. COMPARISON: None. FINDINGS: Surgical changes and devices: None. Lungs and pleura: Lungs are clear. No pleural effusions or pneumothorax. Mediastinum: Mediastinal contours are normal. Heart size is normal. Bones and chest wall: No suspicious bony abnormalities. Soft tissues appear unremarkable. IMPRESSION: No acute cardiopulmonary abnormality is seen. Dictated by: Abel Hwang M.D. on 08/18/2023 at 11:03 Approved by: Abel Hwang M.D. on 08/18/2023 at 11:03
== END ==
PROVIDERS: PCP Nurse Practitioner Family; Referring Provider Nurse Practitioner Family; Visit Provider Nurse Practitioner Family
DX: R05.9 Cough, unspecified (principal)
CPT/HCPCS: 71046

== ENCOUNTER → 2023-09-28 14:33 | Outpatient (CLI) | payer MEDICARE, SELFPAY | PROVIDERS: PCP Nurse Practitioner Family; Referring Provider Specialist; Visit Provider Specialist | DX: R97.20 Elevated prostate specific antigen [PSA] (principal) | CPT/HCPCS: 36415; 84153; 84154 ==

== ENCOUNTER 2023-11-14 13:47 | Day surgery (SDC) | payer MEDICARE, SELFPAY ==
[2023-11-14] VITALS (8 sets, daily range): BP systolic 98–149; BP diastolic 78–97; PULSE 60–96; RESP 12–16; TEMP 36.4–36.9; O2SAT 95–98; BMI 29.8
--- NOTE | 2023-11-14 | PATH_ITS ---
[facility] Accession Number: [id number] No. of containers..01 Tissue . 01 Material submitted: . prostate - PROSTATE CHIPS . 01 Diagnosis: PROSTATE, TURP: Benign prostatic parenchyma. No evidence of malignancy. [facility] 11/18/2023 1147 Local . 01 Electronically signed: . Theodore Wright MD, PhD, Pathologist NPI- [id number] . 01 Gross description: . Received in formalin with two patient identifiers and prostate chips, are multiple aguilera soft tissue fragments admixed with hemorrhagic material weighing 1 gram and aggregating to 3.0 x 1.8 x 0.4 cm. Submitted entirely in A1-A2. ([id number]) /MRV 11/15/2023 1735 Local . 01 Pathologist provided ICD-10: N40.1 . 01 CPT . 761264 Specimen Comment: A courtesy copy of this report has been sent to [phone] Performed at: [address] [facility] [address], [place], [place] [id number] MD Toby Johnson MD Phone: [phone]
--- NOTE | 2023-11-14 14:23 | PM.PREOP ---
Pre-operative Note Interval Note History & Physical reviewed/Exam performed by Physician: Yes Changes to H&P: No
[2023-11-14] MEDS: LACTATED RINGERS 1,000 ML 42 ML IV (14:33)
[2023-11-14] MEDS: ACETAMINOPHEN IV 1,000 MG/100 ML VIAL 400 MG IV (15:00)
[2023-11-14] MEDS: CEFAZOLIN 2 GM/100 ML PREMIX 100 ML IV (15:05)
--- NOTE | 2023-11-14 15:22 | SUR.OPER ---
Lithotomy on padded OR bed, head on pillow, arms secured on padded arm boards at <90 degrees abduction. Legs secured in padded yellow fins stirrups.
[2023-11-14] MEDS: TRANEXAMIC ACID 1,000 MG in SODIUM CHLORIDE 0.9% 100 ML 200 MG IV (15:37)
--- NOTE | 2023-11-14 16:32 | PM.OP.1 ---
Operative Date/Time/Diagnoses Date of procedure: 11/14/23 Time of procedure: 16:32 Pre-op diagnosis: 1. Bladder outlet obstruction. 2. BPH. 3. Dissatisfaction/failure medical therapy. Post-op diagnosis: same Procedure & Clinicians Procedure: 1. Cystoscopy/Aquablation. 2. Cystoscopy/Transurethral resection of prostate. 3. Transrectal prostate ultrasound-diagnostic and guidance. Same procedure as scheduled: Yes Indications: 1. Bladder outlet obstruction. 2. BPH. 3. Dissatisfaction/failure medical therapy. Surgeon: Michale Dorsey Click Yes if Unassisted: Yes Anesthesia Type: General Operative Notes Findings: 1. See preoperative//encounter note [facility] November 10, 2023. Closure Type: not applicable Specimen(s): other (TUR chips) Applied: catheter (Twenty-two Cook Islander three-way hematuria catheter to normal saline continuous bladder irrigation.) Estimated Blood Loss (mL): 10 Blood products transfused: none Procedure in detail: The patient was positioned in supine and was administered general anesthesia. He was then repositioned semi-lithotomy the lower abdomen, genitalia, and groin were then prepped and draped in sterile fashion. 60 cc lubricating jelly were then instilled in the rectal vault. The transrectal ultrasound probe was then passed into the rectal vault at true horizontal in usual fashion. Proper orientation and positioning in the transverse and sagittal planes was then conducted. The device was locked in place. The patient was then draped and the endoscopic hand piece was advanced into the lower urinary tract under direct visualization with the findings as described above. The the hand piece was oriented complainer with the TRUS probe. The treatment 1 was then oriented at the 12 position on the scope. The lens was then scrubbed back at a point just proximal to the external sphincter after locking the hand piece and a complainer positioned with the TRUS probe. Next, in the sagittal plane tip position was confirmed. Now the tip of the treatment 1 was visualized in the transverse plane and jet alignment was confirmed at the 3 and 9 positions. Now angle mapping was conducted in the transverse plane at a proximally the midpoint of the prostate were maximum circumference was measured. No median lobe planning was required. Next, in the sagittal plane the scope was registered and the treatment path was scrolled proximally to the lens tip. Now in the sagittal plane the leading edges tissue to be treated was identified and labeled likewise, bladder neck, mid prostate, and tip of scope lens were identified and labeled as well. Now the treatment profile was created and final adjustments and confirmation of beginning edge of tissue treatment, bladder neck, mid prostate, verumontanum, and scope lens tip were confirmed and labeled. These cline were correlated with previous treatment depth measurements. The bowel robot was then prepared for 1st pass which was commenced under this Surgeons direct control. Now contours were adjusted in fine tuned prior to the 2nd pass which was then conducted again under the surgeon's direct control. The hand piece sheath was then advanced over the tire probe and treatment 1, the magnet released in the hand piece was removed. The TRUS probe was repositioned to allow access with the resectoscope. The resectoscope was then advanced under direct visualization advanced in the bladder. The Ellik evacuator was then used to clear the bladder of some retained clot. Now the resectoscope was fitted with a heavy resecting loop. Focal bladder neck cautery was then conducted. Resection of treated tissue was was performed from approximately the 2 2 10 position. At this point it was evident at the anterior tissue was collapsed and potentially obstructing the resected channel. TUR of this tissue was conducted from bladder neck to point near the verumontanum resulting in a widely patent channel. Tissue chips were then irrigated out with the Ellik evacuator. Additionally residual chips were removed mechanically with the resecting loop. Final hemostasis was obtained with the cautery loop and final inspection revealed adequate hemostasis. The bladder was then left partially filled and the resectoscope was removed. Now a 22 [place]er three-way hematuria catheter was advanced into the bladder with the assistance of a catheter guide. The balloon was inflated to 30 cc in the balloon was then snugged to the bladder neck. Catheter was then hand hand irrigated clear. The three-way hematuria was then connected to normal saline continuous bladder irrigation inflow and gravity drainage outflow. The patient was then repositioned supine, was awakened, transferred to [facility] and transported to recovery awake and in stable condition. Complications: none Post-operative Condition: stable Disposition: PACU Plan for aftercare: Discharge home after observation in PACU.
--- NOTE | 2023-11-14 16:54 | SUR.PHASEI ---
1624 - Received to PACU after genreal anesthesia. Airway patent, self maintained. Report from Rosas Kong RN and Dr Fatima.
== END 2023-11-14 18:24 | disposition home or self-care (01) ==
PROVIDERS: PCP Nurse Practitioner Family; Referring Provider Specialist; Visit Provider Specialist
PROC: 0VT08ZZ Resection of Prostate, Via Natural or Artificial Opening Endoscopic (ICD-10-PCS; CPT 52597; principal; 2023-11-14 15:15)
DX: N40.1 Benign prostatic hyperplasia with lower urinary tract symptoms (principal); N13.8 Other obstructive and reflux uropathy
CPT/HCPCS: 0421T; C2596; J0136; J0690; J1100; J1170; J2405; J2704; J3490

== ENCOUNTER → 2023-11-17 15:02 | Outpatient (CLI) | payer MEDICARE, SELFPAY | PROVIDERS: Visit Provider Specialist | DX: N40.1 Benign prostatic hyperplasia with lower urinary tract symptoms (principal); N13.8 Other obstructive and reflux uropathy | CPT/HCPCS: 87086 ==

== ENCOUNTER → 2023-12-19 10:06 | Outpatient (CLI) | payer MEDICARE, SELFPAY ==
[2023-12-19 12:30] LABS: Prostate Specific Antigen 3.02 ng/mL (0.10-4.00)
== END ==
LOC: LAB 10:13
PROVIDERS: PCP Nurse Practitioner Family; Referring Provider Specialist; Visit Provider Specialist
DX: R97.20 Elevated prostate specific antigen [PSA] (principal)
CPT/HCPCS: 36415; 84153

== ENCOUNTER → 2024-01-04 10:21 | Outpatient (CLI) | payer MEDICARE, SELFPAY | PROVIDERS: PCP Nurse Practitioner Family; Visit Provider Urology | DX: N40.1 Benign prostatic hyperplasia with lower urinary tract symptoms (principal); N13.8 Other obstructive and reflux uropathy | CPT/HCPCS: 87086 ==

== ENCOUNTER 2024-11-28 21:55 | Emergency (ER) | payer MEDICARE, SELFPAY ==
--- NOTE | 2024-11-28 21:58 | EKG_ITS ---
[id number], [place] [address] Test Date: 2024-11-28 Pat Name: Mustapha Toribio Department: [facility] Room: Gender: Male Nurse First Aid: : 1955 Requested By: Order Number: [id number] Reading MD: Jason Conley MD Measurements Intervals [place] Rate: 62 P: 25 OR: 204 QRS: -44 QRSD: 134 T: -16 QT: 442 QTc: 448 Interpretive Statements Normal sinus rhythm Left axis deviation Right bundle branch block Minimal voltage criteria for LVH, may be normal variant ( R in aVL ) Septal infarct , age undetermined Electronically Signed On 11-29-2024 7:31:16 PDT by Jason Conley MD
[2024-11-28 22:04] VITALS: BP 192/122; PULSE 61; RESP 18; TEMP 36.9; O2SAT 96; BMI 30.7
--- NOTE | 2024-11-28 22:10 | DI.RAD.S_ITS ---
PROCEDURE: XR CHEST 1V INDICATIONS: Chest Pain, hand numbness, migraine TECHNIQUE: One view of the chest was acquired. COMPARISON: [facility], CR, XR CHEST 2V, 08/18/2023, 9:09. FINDINGS: Surgical changes and devices: None. Lungs and pleura: Lungs are clear. No pleural effusions or pneumothorax. Mediastinum: Mediastinal contours appear normal. Heart size is normal. Bones and chest wall: No suspicious bony lesions. Overlying soft tissues appear unremarkable. IMPRESSION: No acute cardiopulmonary abnormality is seen. Approved by: Nissa Mari M.D.,Ph.D. on 11/28/2024 at 23:26
[2024-11-28] MEDS: ASPIRIN 81 MG CHEW TAB 324 MG PO (22:13)
[2024-11-28 22:29] LABS: Add Manual Diff / Slide Review NO; Hematocrit 45.3 % (41-53); Hemoglobin 15.4 g/dL (13.5-17.5); Lymphocytes Absolute Auto 1800 /uL (1100-4500); Mean Corpuscular HGB Conc 34.0 % (30-36); Mean Corpuscular Hemoglobin 31.3 PG (26-34); Mean Corpuscular Volume 92.2 fL (80-100); Platelet Count 176 X10^3/uL (150-400)
[2024-11-28 22:37] LABS: INR 1.0 (0.9-1.3); Prothrombin Time 11.3 SECONDS (9.4-12.5)
[2024-11-28 22:40] LABS: PTT Partial Thromboplastin Tim 32 SECONDS (25.1-36.5)
[2024-11-28 22:42] LABS: Alanine Aminotransferase 36 IU/L (<50); Albumin 4.3 g/dL (3.5-5.0); Albumin Globulin Ratio 1.4 (1.0-2.8); Alkaline Phosphatase 96 U/L (38-126); Blood Urea Nitrogen 24 mg/dL (9-20); Calcium 9.3 mg/dL (8.4-10.2); Carbon Dioxide 27 mmol/L (22-32); Chloride 104 mmol/L (98-107); Creatine Kinase 243 U/L (55-170); Estimated Glomerular Filt Rate > 60 mL/min (>60); Globulin 3.0 g/dL (1.7-4.1); Glucose 118 mg/dL (70-99); HEMOLYSIS 29 (0-50); Lipase 127 U/L (23-300); Magnesium 2.1 mg/dL (1.6-2.3); Potassium 4.0 mmol/L (3.4-5.1); Sodium 137 mmol/L (137-145); Total Protein 7.3 g/dL (6.3-8.2)
[2024-11-28 22:53] LABS: NT-proBNP (BNP-Adult 18+) 57 pg/mL (<125); Troponin I < 0.012 ng/mL (0.01-0.034)
[2024-11-28 23:15] VITALS: BP 186/102; PULSE 53; O2SAT 94
[2024-11-28 23:30] VITALS: BP 169/96; PULSE 55; RESP 22; O2SAT 94
--- NOTE | 2024-11-28 23:35 | ED.CHESTPAIN ---
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 at home noticed right anterior chest tightness sensation. Somewhat worse with deep breathing. No history of blood clots to legs or lungs. No recent cough shortness of breath or fevers or chills. No leg pain or swelling symptoms. Denies cardiac risk factors of diabetes, hyperlipidemia, smoking, family history, used to have hypertension for which he has been prescribed lisinopril and atenolol, ran out of these blood pressure medications in the past, has not refilled them. Related Data Home Medications ?Medication ?Instructions ?Recorded ?Confirmed atenolol 25 mg tablet 25 mg PO QDAY ##0 05/03/16 01/04/24 levothyroxine 25 mcg capsule 200 mcg PO DAILY 07/01/21 01/04/24 zolpidem 10 mg tablet 10 mg QPM 12/31/21 01/04/24 rosuvastatin 10 mg tablet 10 mg PO DAILY 11/01/22 01/04/24 tamsulosin 0.4 mg capsule 0.8 mg PO BID 11/03/23 01/04/24 Previous Rx's ?Medication ?Instructions ?Recorded lisinopril 40 mg tablet 40 mg PO DAILY #30 tabs 11/29/24 Allergies Allergy/AdvReac Type Severity Reaction Status Date / Time No Known Drug Allergies Allergy Verified 11/28/24 22:04 Patient History Medical History Hepatitis C (07/31/15) History of nephrolithiasis Renal calculus, left Elevated PSA BPH w urinary obs/LUTS History of nephrolithotomy with removal of calculi Migraine Hypothyroid HTN (hypertension) Surgical History H/O knee surgery Family History Father Heart disease Cancer Kidney stones Mother Stroke Hypertension Cancer Social History marital status: unmarried,single number of children: 2 household members: significant other and none lives independently: Yes occupational status: previously employed Smoking Status: Never smoker alcohol intake: never Type(s) of exercise: walking frequency: 3-4 times per week Smoking Status: Never smoker Exam Narrative Exam Narrative: GENERAL: Well-developed patient, in mild distress. HEAD: Atraumatic. Normocephalic. EYES: Pupils equal round and reactive. Extraocular motions intact. No scleral icterus. No injection or drainage. ENT: Nose without bleeding, purulent drainage. Throat without erythema, tonsillar hypertrophy or exudate. Airway patent. NECK: Trachea midline. Non tender CARDIOVASCULAR: Regular rate and rhythm without murmurs, gallops, or rubs. Right anterior chest discomfort on direct palpation. RESPIRATORY: Clear to auscultation. Breath sounds equal bilaterally. No wheezes, rales, or rhonchi. GASTROINTESTINAL: Abdomen soft, non-tender, nondistended. EXTREMITIES: No edema or joint tenderness. BACK: Nontender without deformity or crepitance. No flank tenderness. NEURO: AOx3. Motor functions grossly nonfocal. SKIN: No rash or erythema of visible areas Initial Vital Signs Initial Vital Signs: Vital Signs Temperature 98.4 F 11/28/24 22:04 Pulse Rate 61 11/28/24 22:04 Respiratory Rate 18 11/28/24 22:04 Blood Pressure 192/122 H 11/28/24 22:04 Pulse Oximetry 96 11/28/24 22:04 Oxygen Delivery Method Room Air 11/28/24 22:04 Course Orders Ordered: ED Orders 11/28/24 21:58 EKG-12 Lead Stat 11/28/24 22:10 XR chest 1V Stat 11/28/24 22:15 Complete Blood Count AUTO DIFF Stat Comprehensive Metabolic Panel Stat Lipase Stat Magnesium Stat NT-proBNP (BNP-Adult 18+) Stat PTT Partial Thromboplastin Nicolas Stat Prothrombin Time INR Stat Troponin & CK Cardiac Panel Stat 11/29/24 00:40 Trop I [Troponin I] Stat Discontinued Medications Aspirin (Aspirin 81 Mg Chew Tab) 324 mg PO NOW ONE Stop: 11/28/24 22:11 Last Admin: 11/28/24 22:13 Dose: 324 mg Documented By: LS Vital Signs Vital signs: Vital Signs - 8 hr 11/28/24 22:04 11/28/24 23:15 11/28/24 23:15 Temperature 98.4 F Pulse Rate 61 53 L Respiratory Rate 18 Blood Pressure 192/122 H 186/102 H Pulse Oximetry 96 94 Oxygen Delivery Method Room Air 11/28/24 23:30 11/28/24 23:30 11/29/24 00:00 Temperature Pulse Rate 55 L 54 L Respiratory Rate 22 20 Blood Pressure 169/96 H Pulse Oximetry 94 94 Oxygen Delivery Method 11/29/24 00:00 11/29/24 00:30 11/29/24 00:30 Temperature Pulse Rate 54 L Respiratory Rate 23 Blood Pressure 171/94 H 174/90 H Pulse Oximetry 93 Oxygen Delivery Method 11/29/24 01:00 11/29/24 01:00 11/29/24 01:30 Temperature Pulse Rate 52 L 51 L Respiratory Rate 19 21 Blood Pressure 166/91 H Pulse Oximetry 94 95 Oxygen Delivery Method 11/29/24 01:30 11/29/24 02:00 11/29/24 02:00 Temperature Pulse Rate 49 L Respiratory Rate 27 H Blood Pressure 162/94 H 159/93 H Pulse Oximetry 95 Oxygen Delivery Method Room Air 11/29/24 02:30 11/29/24 02:30 Temperature Pulse Rate 51 L Respiratory Rate 22 Blood Pressure 152/89 H Pulse Oximetry 94 Oxygen Delivery Method Room Air MDM - Chest Pain Lab Data Attestation: I reviewed the patient's lab results. Lab results narrative: White blood cell count 7900, hemoglobin 15.4, platelets adequate. Glucose 118. Renal function unremarkable. Serum CO2 and electrolytes unremarkable. Liver functions and lipase normal. CPK not particularly elevated. Troponin negative/unmeasurable. 11/28/24 22:15 11/28/24 22:15 Labs: Lab Results 11/28/24 11/29/24 Range/Units 22:15 00:40 WBC 7.9 (4.5-11.0) X10^3/uL RBC 4.92 (4.5-5.9) X10^6/uL Hgb 15.4 (13.5-17.5) g/dL Hct 45.3 (41-53) % MCV 92.2 (80-100) fL MCH 31.3 (26-34) PG MCHC 34.0 (30-36) % RDW 13.4 (11.6-14.8) % Plt Count 176 (150-400) X10^3/uL Neut % (Auto) 66.4 (50-75) % Lymph % (Auto) 22.6 L (25-40) % [place] % (Auto) 6.3 (3-14) % Eos % (Auto) 3.7 (2-4) % Baso % (Auto) 1.0 (0-2) % Neut # (Auto) 5300 (4093-1601) /uL Lymph # (Auto) 1800 (4926-0972) /uL [place] # (Auto) 500 (0-900) /uL Eos # (Auto) 300 (0-450) /uL Baso # (Auto) 100 (0-100) /uL PT 11.3 (9.4-12.5) SECONDS INR 1.0 (0.9-1.3) APTT 32 (25.1-36.5) SECONDS Sodium 137 (137-145) mmol/L Potassium 4.0 (3.4-5.1) mmol/L Chloride 104 (98-107) mmol/L Carbon Dioxide 27 (22-32) mmol/L BUN 24 H (9-20) mg/dL Creatinine 1.15 (0.66-1.25) mg/dL Estimated GFR > 60 (>60) mL/min BUN/Creatinine Ratio 20.9 (6-22) Glucose 118 H (70-99) mg/dL Calcium 9.3 (8.4-10.2) mg/dL Magnesium 2.1 (1.6-2.3) mg/dL Total Bilirubin 0.7 (0.2-1.3) mg/dL AST 38 (17-59) IU/L ALT 36 (<50) IU/L Alkaline Phosphatase 96 (38-126) U/L Total Creatine Kinase 243 H (55-170) U/L Troponin I < 0.012 < 0.012 (0.01-0.034) ng/mL NT-Pro-B Natriuret Pep 57 (<125) pg/mL Total Protein 7.3 (6.3-8.2) g/dL Albumin 4.3 (3.5-5.0) g/dL Globulin 3.0 (1.7-4.1) g/dL Albumin/Globulin Ratio 1.4 (1.0-2.8) Lipase 127 (23-300) U/L Imaging Data Chest x-ray: Radiologist's Impression: [address] [address] XRay Report Signed Patient: Mustapha Toribio MR#: [id number] : 1955 Acct:[id number] Age/Sex: 69 / M Date of Service: 11/28/24 Loc: ED Accession Number: [id number] Procedure: XR chest 1V Ordering Provider: Xavier Edwards MD PROCEDURE: XR CHEST 1V INDICATIONS: Chest Pain, hand numbness, migraine TECHNIQUE: One view of the chest was acquired. COMPARISON: [facility], , XR CHEST 2V, 08/18/2023, 9:09. FINDINGS: Surgical changes and devices: None. Lungs and pleura: Lungs are clear. No pleural effusions or pneumothorax. Mediastinum: Mediastinal contours appear normal. Heart size is normal. Bones and chest wall: No suspicious bony lesions. Overlying soft tissues appear unremarkable. IMPRESSION: No acute cardiopulmonary abnormality is seen. Approved by: Nissa Mari M.D.,Ph.D. on 11/28/2024 at 23:26 ECG Data Attestation: I personally reviewed and interpreted this ECG as follows: Interpretation: 2203, normal sinus rhythm with rate 62, right bundle branch block pattern. SC 204, QRS 134, QTC 448. [facility] Narrative Medical decision making narrative: 69-year-old male with right anterior chest discomfort, some pleuritic component, had been moving furniture earlier, some tenderness to palpation right anterior. Screening chest x-ray, EKG, labs pending. Given oral aspirin. He had taken oral Tylenol and Motrin earlier in the day for migraine headache, headache seems to be improved. EKG without obvious ischemic changes. Chest x-ray no acute changes. See radiology report. Initial lab data: White blood cell count 7900, hemoglobin 15.4, platelets adequate. Glucose 118. Renal function unremarkable. Serum CO2 and electrolytes unremarkable. Liver functions and lipase normal. CPK not particularly elevated. Troponin negative/unmeasurable. We will obtain interval troponin. Patient agreeable. Seems comfortable. Declines pain medications for now. Repeat troponin also negative/unmeasurable. Suspect right anterior chest discomfort with tenderness on palpation to be musculoskeletal. Further workup as an outpatient if needed. Trial of anti-inflammatory medications as needed. Home with family. Return precautions discussed. Patient/ also expressed interested in restarting blood pressure medication, previously on lisinopril. We will refill lisinopril, sent to their pharmacy. Recheck blood pressure and consider repeat creatinine/potassium evaluation on SHAHANA inhibitor restart, in follow up clinic. Discharge Plan Departure Patient Disposition: Home Clinical Impression: Chest wall pain, Hypertension Activity Restrictions/Additional Instructions: Right anterior chest discomfort, moving some light furniture at work earlier in the day, no cough or fever. Some tenderness on anterior chest wall, possible musculoskeletal etiology. Chest x-ray negative. EKG and serial blood tests not suggestive of heart attack at this time. Consider use of [id number] Tylenol and or Motrin as needed for discomfort. Consider aspirin daily. Follow up with your regular doctor later this week, further evaluation testing as needed as an outpatient for now. Return earlier to this/nearest emergency department for any change worsening symptoms or any concerns prior. You also expressed interest in restarting lisinopril for blood pressure control, prescription sent to your pharmacy. Consider recheck of blood pressure and symptoms, also sometimes SHAHANA inhibitors can affect your kidney function and potassium levels, consider repeat blood draw after a week or so on restart therapy. Prescriptions: New lisinopril 40 mg tablet 40 mg PO DAILY Qty: 30 0RF No Action atenolol 25 MG tablet 25 mg PO QDAY Qty: 0 levothyroxine 25 mcg capsule 200 mcg PO DAILY zolpidem 10 mg tablet 10 mg QPM Patient Comments: TAKE ONE TABLET BY MOUTH NIGHTLY AT BEDTIME NEEDED rosuvastatin 10 mg tablet 10 mg PO DAILY tamsulosin 0.4 mg capsule 0.8 mg PO BID Referrals: Nesha Sexton ARNP, RN [Primary Care Provider, Emergency Medicine] Stand Alone Forms: Patient Portal/API
[2024-11-29] VITALS: BP 171/94; PULSE 54; RESP 20; O2SAT 94
[2024-11-29 00:30] VITALS: BP 174/90; PULSE 54; RESP 23; O2SAT 93
[2024-11-29 01:00] VITALS: BP 166/91; PULSE 52; RESP 19; O2SAT 94
[2024-11-29 01:30] VITALS: BP 162/94; PULSE 51; RESP 21; O2SAT 95
[2024-11-29 02:00] VITALS: BP 159/93; PULSE 49; RESP 27; O2SAT 95
[2024-11-29 02:25] LABS: Troponin I < 0.012 ng/mL (0.01-0.034)
[2024-11-29 02:30] VITALS: BP 152/89; PULSE 51; RESP 22; O2SAT 94
== END 2024-11-29 03:01 | disposition home or self-care (01) ==
PROVIDERS: Emergency Provider Emergency Medicine; PCP Nurse Practitioner Family
DX: R07.89 Other chest pain (principal); I10 Essential (primary) hypertension
CPT/HCPCS: 36415; 71045; 80053; 82550; 83690; 83735; 83880; 84484; 85025; 85610; 85730; 93005; 93010; 99284